=== PATIENT | female | born 1950 | race Caucasian/White ===

== ENCOUNTER 2018-02-25 14:41 | Inpatient (IN) ==
[2018-02-25] MEDS ORDERED: LR 1,000 ML IV ONE (17:00)
[2018-02-25] MEDS ORDERED: ZOFRAN IV PRN (17:01)
[2018-02-25] MEDS ORDERED: SALINE LOCK IV FLUID XX ONE (17:01)
[2018-02-25] MEDS ORDERED: LR 500 ML IV ONE (17:01)
[2018-02-25] MEDS ORDERED: MORPHINE IV PRN ×2 (17:01→20:13)
[2018-02-25 18:06] LABS: BASO# 0.02 X1000 (0.0-0.2); BASO% 0.2 % (0.0-0.8); EOS# 0.01 X1000 (0.0-0.7); EOS% 0.1 % (0.0-10.0); HEMATOCRIT 47.6 % (37.0-47.0); HEMOGLOBIN 16.2 g/dL (12.0-16.0); IMM GRAN# 0.03 X1000 (0.0-0.04); IMM GRAN% 0.2 % (0.0-0.5); LYMPH# 1.18 X1000 (1.2-3.4); LYMPH% 9.7 % (20.5-51.1); MCH 29.8 PG (27-31); MCV 87.5 FL (81-99); MONO# 0.56 X1000 (0.11-0.59); MONO% 4.6 % (1.7-9.3); MPV 9.9 FL (7.4-10.4); NEUT# 10.32 X1000 (1.4-6.5); NEUT% 85.2 % (42.2-75.2); PLT 216 X1000 (130-400); RBC 5.44 XMIL (4.2-5.4); RDW 12.7 % (11.5-14.5); WBC 12.12 X1000 (4.8-10.8)
[2018-02-25 18:52] LABS: LYMPHS 8 % (21-51); MONO 4 % (1-9); SEGS 87 % (42-75)
[2018-02-25 18:57] LABS: AGAP 17; ALB/GLOB RATIO 1.2; ALKALINE PHOSPHATASE 128 U/L (32-104); AMYLASE 1113 U/L (20-200); BUN 15 mg/dL (8-22); CALCIUM 9.3 mg/dL (8.8-10.2); CHLORIDE 96 mmol/L (98-107); COSMO 283; CREATININE 0.9 mg/dL (0.5-0.9); ESTIMATED GFR > 60; GLUCOSE 391 mg/dL (70-104); GOT 21 U/L (10-30); GPT 26 U/L (10-36); POTASSIUM 4.8 mmol/L (3.5-5.1); SODIUM 133 mmol/L (136-145); TCO2 20 mmol/L (25-35); TOTAL BILIRUBIN 1.28 mg/dL (0.20-1.00); TOTAL PROTEIN 7.3 g/dL (6.3-8.3)
[2018-02-25] MEDS: LOVENOX SUBQ SCH (19:10)
[2018-02-25 19:23] LABS: LIPASE > 3000 U/L (13-60)
[2018-02-25] MEDS: ZOFRAN IV PRN ×2 (20:30→22:44)
[2018-02-25] MEDS: MORPHINE IV PRN ×2 (20:30→22:41)
[2018-02-25] MEDS: LR 1,000 ML IV SCH (20:35)
--- NOTE | 2018-02-25 21:13 | Diag Imaging Result Doc PS360 ---
EXAM: CT ABD/PELVIS W/IV CONT ONLY - 02/25/2018 HISTORY: abd. pain, vomiting TECHNIQUE: CT abdomen/pelvis with intravenous contrast. No oral contrast administered per request the referring provider. COMPARISON: 01/11/2018 FINDINGS: The visualized lung bases appear clear except for mild dependent atelectasis. The gallbladder surgically absent. There is mild biliary ductal dilatation which may relate to the postcholecystectomy state. There is no calcified common duct stone identified. There is a 2.6 cm fluid density lesion suggestive of cyst in the right lobe of liver, which appears to have enlarged mildly. There are no acute abnormalities of the spleen, adrenal glands, or kidneys identified. The pancreatic duct is mildly dilated. There is peripancreatic infiltration which is most prominent near the pancreatic tail, compatible with acute pancreatitis. There is no pancreatic necrosis identified. There is no pseudocyst identified. There is no discrete pancreatic mass identified. There are nonspecific small retroperitoneal lymph nodes. There are no substantial enlarged lymph nodes identified. There are extensive atherosclerotic calcifications noted in the abdominal aorta and iliac arteries. There is a lumbar spine degenerative changes noted. There is no evidence of bowel obstruction. The appendix is unremarkable. There is no free air, substantial free fluid, or abscess identified. IMPRESSION: Acute pancreatitis. Mild dilatation of pancreatic duct. No evidence of pancreatic necrosis. No pseudocyst. Mild biliary ductal dilatation, which may relate to the postcholecystectomy state. Apparent 2.6 cm hepatic cyst. This exam was performed using automated exposure control, adjustment of mA or kV according to patient size, and/or use of iterative reconstruction technique. Electronically signed by Yousif Clark 02/25/2018 9:11 PM
--- NOTE | 2018-02-25 21:22 | HISTORY AND PHYSICAL ---
ATTENDING PHYSICIAN: Dr. Sesar Pitts. ADMITTING PHYSICIAN: Dr. Sesar Pitts. CHIEF COMPLAINT: Abdominal pain complicated by nausea and vomiting. HISTORY OF PRESENT ILLNESS: Ms Leone is a pleasant 68-year-old female with past medical history consistent with insulin-dependent diabetes, dyslipidemia, history of asthma, history of right knee pain secondary to right lateral meniscus injury, history of chronic pancreatitis, history of hypertension. She was recently admitted to the Internal Medicine service in December 2017 for questionable early pancreatitis. An EGD performed during the admission failed to demonstrate any evidence of acute findings. She presents today with less than 24 hours of worsening abdominal pain complicated by nausea and vomiting, suspicious for acute small bowel obstruction versus acute pancreatitis. She reports no unusual symptoms over the past 48 to 72 hours. She awoke this morning with some nonspecific and early abdominal distress which appears to be progressing over the course of the day. She is admitted to the Internal Medicine service for acute abdominal pain, distention, nausea and vomiting, further diagnostic labs and imaging studies. ALLERGIES: Crestor, Phenergan, TriCor and Hyzaar. MEDICATIONS ON ADMISSION: Including: Injectable insulin, both basal and bolus, levothyroxine 25 mcg once daily, Pantoprazole 40 mg every other day and atorvastatin 20 mg p.o. at bedtime. FAMILY HISTORY: Father secondary to metastatic cancer of the colon to the liver. Mother 2014 with advanced coronary disease and osteoarthritis. She is an only child. SOCIAL STATUS: Patient is with 45-year-old boy, 3 grandchildren. She has been since 1970. She denies any tobacco. She admits to rare alcohol use less than 3 times a year. PAST SURGICAL HISTORY: Cholecystectomy in 2009, right knee surgery in 2014, lymph node biopsy in 1986, skin biopsy in 2007, right foot surgery in 2014. Patient's last annual wellness visit in August 2017. Patient's last admission to the Internal Medicine service in December 2017. At that time she underwent CAT scan of sinus CT scan and repeat CAT scan. Initial episode of pancreatitis dates back to 2007 with recurrent admission in 2016 and questionable diagnosis in December 2017. REVIEW OF SYSTEMS: A 12 point review of systems is unremarkable except that noted within the HPI. She does report [employer] chicken and red beans with rice yesterday afternoon, no issues. Then a grilled hamburger at [employer] with some mild exacerbation of reflux symptoms. She states she had no problems following the meal last night and had an uneventful night, but this morning as mentioned above awoke with 6-7/10 pain with no nausea which is progressed to 10+ out of 10, now with nausea and dry heaves. EXAMINATION: Blood pressure 140/80, pulse of 85, temperature at 98.5, saturating 97% on room air. The patient is 200 pounds with a BMI at 32.27.Generally: Well-nourished, well developed female in a mild to moderate amount of distress secondary to dry heaves and abdominal discomfort. HEENT: Neck is soft and supple without lymphadenopathy or bruits. Cardiovascular: Unremarkable. Lungs: Clear. Abdomen: Diffusely tender with mild guarding. Perineal rebound is not assessed secondary to tenderness and nausea. Extremities: Benign, without clubbing, cyanosis or edema. Neurologic: Cranial nerves 2-12 are grossly intact. Patient is alert and oriented x 3 without any cognitive deficiencies. ADDITIONAL LABORATORY: Including chemistry, KUB are obtained on admission. Results are pending at the time of dictation. ASSESSMENT AND PLAN: Differential diagnosis including viral gastroenteritis versus small-bowel obstruction complicated by nausea and vomiting, initiation of nasogastric suction may be indicated pending further diagnostic workup and imaging. Antiemetic IV as well as anti pain IV will be provided. Considering her history of chronic/recurrent pancreatitis, medications today have been stopped or held secondary to recent exacerbation in the fall. Consider other causes including adhesive disease as potential exacerbators of abdominal pain. The patient had an EGD during her last admission on the 15 of January which failed to demonstrate any evidence of abnormalities within the duodenum or the stomach. We will continue to follow clinically in this regard. Patient and understand the course of treatment and plan. No further issues at this time. No further issues at this time. TIME SPENT: Total time spent in evaluation of patient, documentation, phone followup and admission orders and dictation of history and physical greater than 90 minutes. cc: Sesar Pitts DO
[2018-02-25 22:22] LABS: INR 1.06; PROTIME 14.6 Seconds (11.0-16.0)
[2018-02-25 22:30] LABS: CHOLESTEROL 153 mg/dL (0-200); HDL 50 mg/dL (45-65); LDL 75 mg/dL; TRIGLYCERIDES 138 mg/dL (35-135); VLDL 28 mg/dL
[2018-02-26] MEDS: LR 1,000 ML IV SCH ×5 (02:59→23:04)
[2018-02-26] MEDS: MORPHINE IV PRN ×6 (03:06→23:00)
[2018-02-26] MEDS: ZOFRAN IV PRN ×6 (03:06→23:00)
--- NOTE | 2018-02-26 07:22 | Diag Imaging Result Doc PS360 ---
EXAM: KUB ABDOMEN 02/25/2018 HISTORY: acute nausea/vomitting and ABD pain TECHNIQUE: KUB COMMENT: There is stool in the ascending colon. There are surgical clips in the right upper quadrant. There is some gas in the stomach which is not distended. There is no evidence of small bowel dilatation. There is no evidence organomegaly or mass. There is contrast excretion in both kidneys and contrast is present in the urinary bladder. Presumably this is from the CT scan performed at 2040. IMPRESSION: Mild constipation. Otherwise nonspecific abdomen. Electronically signed by Juanito Causey 02/26/2018 7:20 AM
[2018-02-26] MEDS: HUMALOG SUBQ SCH ×3 (11:44→20:24)
[2018-02-26] MEDS: LOVENOX SUBQ SCH (18:23)
--- NOTE | 2018-02-26 19:38 | PROGRESS NOTE ---
DATE: 02/26/2018 ADMITTING DIAGNOSIS: Pancreatitis. This will be hospital day #2. INDICATION FOR ONGOING HOSPITALIZATION: Persistent epigastric and left upper quadrant pain with elevated amylase and lipase, amylase at 1113 and lipase greater than 3000. She has persistent pain. Overnight her pain was improved with q.2 morphine and IV fluids. Laboratory obtained on admission but not contained in the H and P, elevated white blood cell count at 12.12, elevated hemoglobin and hematocrit at 16.2 and 47.6 with platelets at 216,000. Abnormal urine with urine culture pending at the time of this dictation. PT/INR noted to be normal, sodium 133, potassium 4.8, chloride 96, bicarb at 20, BUN and creatinine at 15 and 0.9, glucose at 391, calcium at 9.3, total bilirubin at 1.28, AST and ALT are unremarkable, admission triglycerides at 138, total cholesterol at 153, LDL at 75, HDL at 50, again amylase and lipase at 1113 and greater than 3000 respectively, plasma lactate at 1.9. Urine culture is pending at the time of dictation. Preliminary evaluation is not readily available for review. I's and O's since admission 2000 in and 500 out for +1700 cumulative over the past 24 hours +1.2 5 L. Vitals: Blood pressure 143/65, temperature at 98.4 degrees with T-max at 99.0, pulse rate at 70, saturating 95% on room air. EXAM: HEENT: Is unremarkable. Cardiovascular: Regular rate and rhythm without murmurs, gallops, or rubs. Lungs: Clear. Abdomen: Remains diffusely tender, localization to the left upper quadrant and epigastric region and left lower quadrant. Mild guarding is noted. Patient reports pain is no more than 50% improved. Extremities: Are benign without clubbing, cyanosis or edema. Neurologic: Cranial nerves 2-12 are grossly intact. Patient is alert and oriented x3 without any cognitive deficiencies. Additional laboratory pending for Sunday the 27 of February ES with reflexive ES panel, CMP, total iron, a magnesium, a phosphorus and ongoing surveillance of outstanding urine culture. GI has met with the patient for consultative opinion. Formal evaluation is not readily available for review. IMPRESSION: 68-year-old with acute pancreatitis patient having recently been admitted on 01/09/2018 for possible pancreatitis treated and discharged. Patient presents with more acute, more precipitous and more clinical objective evidence of same with inflammation of the pancreatic tail and I elevated amylase and lipase. Differential diagnosis for causes including medications which have historically been minimized hypertriglyceridemia which is not currently a factor, alcohol which is not currently a factor, certainly viral and/or infectious etiologies and/or evidence of intra pancreatic obstruction, we will deferred to GI with regards to further diagnostic workup. I do think that a ERCP would be of benefit to rule out the presence of intrapancreatic obstruction, perhaps even indication for sphincter of Oddi stenting. Based on elevated iron studies, a elevated hematocrit total iron is being requested. Patient has no history of iron metabolism disorder but certainly hemochromatosis should be considered in the differential diagnosis although low probability. Abnormal urine warrants further followup once urine culture and sensitivity have been identified. We will be advancing the diet as clinically indicated. No indication for parenteral nutritional support at this time although transitioning to alternate nutrient source such as Clinimix may be of benefit, no surgical indication, patient remains clinically stable without further decompensation, will continue to follow clinically in this regard. Total time spent on the floor and at the bedside approximately 40 minutes. cc: Sesar Pitts DO
--- NOTE | 2018-02-27 02:09 | CONSULTATION ---
DATE OF CONSULTATION: 02/26/2018 REASON FOR CONSULTATION: Abdominal pain, acute pancreatitis, history of chronic pancreatitis. HISTORY OF PRESENT ILLNESS: This is a 68-year-old white female who is known to our practice. She has a history of chronic pancreatitis with most recent episodes in December of 2017. She was in the hospital, once she was discharged she had an EGD as an outpatient on 2017. Findings showed gastritis and small duodenal nodules. Biopsy showed chronic inflammation in the small intestine/duodenum with gastric metaplasia and chronic inactive gastritis in the stomach, H. pylori was negative. The patient states she did well after the EGD until yesterday. She has not been on any new medications. She has been taking her Prilosec as prescribed. Symptom onset early Sunday morning. Sunday she had eaten out for lunch at [employer], she had chicken with beans and rice, for supper she ate at a local restaurant and had a hamburger. Sunday morning she states she did not feel well, she had some abdominal pain with nausea and chills , and symptoms worsened. She called Dr. Pitts who admitted her to the hospital for further evaluation. Currently the patient states her pain level is a 6/10, she has received pain medication and medication for nausea. She states she had normal bowel movements yesterday. She had reported chills. She had episodes of nausea with dry heaves. She did have some greenish color emesis. No reported hematemesis or blood in the stool. PAST MEDICAL HISTORY: Diabetes, dyslipidemia, history of asthma, history of right meniscus injury, history of chronic pancreatitis, hypertension. PAST SURGICAL HISTORY: Cholecystectomy, right knee surgery, lymph node biopsy, skin biopsy, right foot surgery. ALLERGIES: To TriCor, Hyzaar, Phenergan, and Crestor. HOME MEDICATIONS: 1. NovoLog insulin subcutaneous as directed. 2. Tresiba insulin 30 units every night subcutaneous. 3. Levothyroxine 25 mcg daily. 4. Protonix 40 mg daily. SOCIAL HISTORY: She is . She has 1 child. She denies tobacco or recent alcohol use. REVIEW OF SYSTEMS: Per history of present illness. PHYSICAL EXAMINATION: Vital Signs: Temperature 98.4 degrees, pulse 70, blood pressure 143/65. General: The patient is awake and alert. She complains of a pain level of 6/ 10. She has had some episodes of dry heaves. She has received pain medication. She is in no acute distress. HEENT: Normocephalic and atraumatic. Pupils are equal, round, and reactive to light. Sclerae are anicteric. Cardiovascular: Regular rate and rhythm. Respiratory: Lung sounds clear bilaterally. Abdomen: With general tenderness. Positive bowel sounds. Extremities: No lower extremity edema noted. Neurologically: Cranial nerves II-XII grossly intact. The patient is awake, alert, and oriented to person, place, and time. DIAGNOSTIC RESULTS: Laboratory: Hematology: WBC 12.12, hemoglobin 16.2, hematocrit 47.6, MCV 87.5, platelets 216,000. Chemistry: Sodium 133, potassium 4.8, chloride 96, CO2 of 20, BUN 15, creatinine 0.9, glucose 391, total bilirubin 1.28, AST 21, ALT 26, alkaline phosphatase 128, triglycerides 138, cholesterol 153, amylase on 02/25/2018 1113, lipase greater than 3000. IMAGING STUDIES: Abdominal pelvis CT scan showed acute pancreatitis, mild dilation of the pancreatic duct with no evidence of pancreatic necrosis or pseudocyst. Findings also showed mild biliary ductal dilation possibly related to post cholecystectomy state, 2.6-cm hepatic cyst. ASSESSMENT AND PLAN: 1. Acute pancreatitis. 2. Chronic pancreatitis with no definite diagnosis. The patient has had workup in the past. She has had MRCP in the past. 3. Abdominal pain. Continue current management with pain medication. Continue to hold the patient NPO except for ice chips, p.r.n. medication for pain and nausea, symptomatic treatment. The patient has had workup in the past for chronic pancreatitis. Due to her recurrence would recommend endoscopic ultrasound for further evaluation, that will have to be scheduled at an outside facility as an outpatient. We will continue to follow and further plans will be made according to her progress. I have discussed this case with Dr. Harry. Thank you for this consultation. Dictated by RITA Guardado for Reyes Harry MD cc: RITA Valencia MD Jeffrey A. Johnson, DO [facility]
[2018-02-27] MEDS: LR 1,000 ML IV SCH (03:42)
[2018-02-27] MEDS: ZOFRAN IV PRN ×6 (03:42→22:06)
[2018-02-27] MEDS: MORPHINE IV PRN ×6 (03:42→22:06)
[2018-02-27] MEDS ORDERED: G.I. COCKTAIL PO ONE (06:48)
[2018-02-27] MEDS: HUMALOG SUBQ SCH ×4 (06:59→21:49)
[2018-02-27 07:10] LABS: AMYLASE 213 U/L (20-200)
[2018-02-27] MEDS: CLINIMIX E 4.25%-5% SOLUTION 1,000 ML IV SCH ×3 (07:11→20:58)
[2018-02-27 07:13] LABS: AGAP 11; ALB/GLOB RATIO 1.3; ALBUMIN 3.6 g/dL (3.5-5.0); ALKALINE PHOSPHATASE 100 U/L (32-104); BUN 8 mg/dL (8-22); CALCIUM 8.2 mg/dL (8.8-10.2); CHLORIDE 97 mmol/L (98-107); COSMO 273; CREATININE 0.6 mg/dL (0.5-0.9); ESTIMATED GFR > 60; GLUCOSE 213 mg/dL (70-104); GOT 19 U/L (10-30); GPT 21 U/L (10-36); MAGNESIUM 1.5 mg/dL (1.5-2.7); PHOSPHORUS 2.7 mg/dL (2.7-4.5); POTASSIUM 3.9 mmol/L (3.5-5.1); SODIUM 134 mmol/L (136-145); TCO2 26 mmol/L (25-35); TOTAL BILIRUBIN 2.37 mg/dL (0.20-1.00); TOTAL IRON 24 ug/dL (49-151); TOTAL PROTEIN 6.4 g/dL (6.3-8.3)
[2018-02-27 07:28] LABS: LIPASE 857 U/L (13-60)
[2018-02-27] MEDS: CARAFATE LIQUID PO SCH ×3 (09:04→20:20)
--- NOTE | 2018-02-27 14:27 | PROGRESS NOTE ---
DATE: 02/27/2018 SUBJECTIVE: Patient is still having some nausea. She has reported some dry heaves after trying liquids. She reports a pain level of 6/10. She has received pain medication. OBJECTIVE: Vital Signs: Temperature 98.0 degrees, pulse 79, respirations 18, blood pressure 158/74. General: Patient is awake, alert, no acute distress. Respiratory: Lung sounds essentially clear bilaterally. Abdomen: Soft, but tender with palpation. LABORATORY: Hematology from 02/25/2018: WBC 12.12, hemoglobin 16.2, hematocrit 47.6, MCV 87.5, platelets 216,000. Chemistry: Sodium 134, potassium 3.9, chloride 97, CO2 26, BUN 8, creatinine 0.6, glucose 213. Iron 24. Total bilirubin 2.37, AST 19, ALT 21, alkaline phosphatase 100, amylase 213, lipase 857. CT scan of the abdomen and pelvis showed acute pancreatitis with mild dilation of the pancreatic duct. No evidence of pancreatic necrosis and no pseudocyst noted. There was mild biliary duct dilation which may be related to post cholecystectomy state. A 2.6 cm hepatic cyst also noted. ASSESSMENT AND PLAN: 1. Acute pancreatitis. Amylase and lipase have improved some today. 2. Chronic pancreatitis. Patient has had workup in the past. 3. Abdominal pain, nausea. Continue symptomatic treatment and supportive care. Dr. Harry has recommended an endoscopic ultrasound for further evaluation. We will start the referral process to [facility]. Further plans will be made according to her progress during her hospitalization. I have discussed this case with Dr. Harry. Dictated by RITA Guardado for Reyes Harry MD cc: RITA Valencia MD Jeffrey A. Johnson, DO
[2018-02-27] MEDS ORDERED: MAGNESIUM SULFATE 2 GM/S.W.I. 2 GM/50 ML IVPB IV ONE (18:37)
[2018-02-27] MEDS ORDERED: DOXYCYCLINE 100 MG in NS 250 ML IV SCH (18:45)
[2018-02-27] MEDS: LOVENOX SUBQ SCH (18:47)
[2018-02-27] MEDS: ROCEPHIN 1 GM in NS 50 ML IV SCH (20:20)
[2018-02-27] MEDS: PEPCID IV SCH (21:49)
[2018-02-27] MEDS: SODIUM CHLORIDE 0.9% INJ SCH (21:49)
[2018-02-28] MEDS: MORPHINE IV PRN ×6 (02:17→21:48)
[2018-02-28] MEDS: CARAFATE LIQUID PO SCH ×5 (02:17→21:01)
[2018-02-28] MEDS: ZOFRAN IV PRN ×6 (02:17→21:48)
[2018-02-28] MEDS: SODIUM CHLORIDE 0.9% INJ SCH (05:29)
[2018-02-28] MEDS: PEPCID IV SCH ×3 (05:29→18:25)
[2018-02-28] MEDS: CLINIMIX E 4.25%-5% SOLUTION 1,000 ML IV SCH ×4 (05:29→20:59)
--- NOTE | 2018-02-28 05:37 | PROGRESS NOTE ---
DATE: 02/27/2018 INDICATION FOR PROLONGED HOSPITALIZATION: Persistence of abdominal pain, although intervally improving labs. SUBJECTIVE: Patient is inquiring about advancing diet to something more solid. This morning, she was offered a GI cocktail for dyspepsia and Carafate with meals. This was not well tolerated secondary to nausea and vomiting. She has not had any additional GI cocktail since this morning. She remains hemodynamically stable. OBJECTIVE: Vital Signs: Blood pressure 158/69, respirations at 16, pulse at 78, saturating 98% on room air. T-max at 98.4 degrees. Is and Os: 2400 in and 450 out for +1950, 480 in and 1300 out for -820. She is approximately 2.83 L up for her hospitalization. Laboratory: For this morning, CMP with persistence of hyponatremia. Sodium 134, potassium 3.9, chloride at 97, BUN and creatinine at 8 and 0.6, glucose ranging between 213 and 391, calcium has fallen from 9.3 to 8.2. Bilirubin has risen from 1.2 to 2.3. Alkaline phosphatase is normal. Liver enzymes are normal. There has been some interval improvement in amylase and lipase, amylase falling from 1113 to 213 and lipase greater than 3000 now at 857. Urinalysis is consistent with 20,000 to 30,000 gram negative rods. Physical Examination: HEENT: Unremarkable. Cardiovascular: Regular rate and rhythm without murmurs, gallops, or rubs. Lungs: Clear. Abdomen: Remains soft in the epigastric and left upper quadrant as well as the left lower quadrant with mild guarding. Extremities: Benign, without clubbing, cyanosis, or edema. Neurological: Cranial nerves 2-12 are grossly intact. Patient is alert and orient x3 without any cognitive deficiencies. IMPRESSION AND PLAN: 1. A 68-year-old with acute on chronic pancreatitis. Patient admitted with abnormal CT scan as well as elevated biochemical markers. Although these labs appear to be trending downward, she continues to remain tender. She is requesting advancement of her diet, thinking that something on her stomach may help settle her stomach. A small amount of crackers and peanut butter and pudding will be offered. I suspect that this might make her sick again, and a more slow and deliberate introduction of fluids graduating from clears to fulls to soft and then to a regular diet will be appropriate. 2. With regards to the abnormal urine, we will be starting her on Rocephin. This should add any additional coverage from a pancreatic standpoint, although it is not felt that this is infective or necrotic pancreatitis in nature. She has no other focal source. 3. With regards to dyspepsia, she had an esophagogastroduodenoscopy the last time that she was in the hospital, without any significant findings. She is currently on nothing for acid suppression. We will start her on some Pepcid 20 mg intravenous twice daily and follow clinically. 4. She continues on deep venous thrombosis prophylaxis and we have transitioned her from lactated Ringer's to Clinimix as supplemental nutrition support. No new and/or additional recommendations at this time. Patient understands the course of treatment and plan. Note is dictated on the evening of rounds. cc: Sesar Pitts DO
[2018-02-28] MEDS: HUMALOG SUBQ SCH ×3 (06:23→17:15)
[2018-02-28 07:31] LABS: AGAP 16; ALB/GLOB RATIO 1.2; ALKALINE PHOSPHATASE 117 U/L (32-104); AMYLASE 49 U/L (20-200); BUN 18 mg/dL (8-22); CALCIUM 8.9 mg/dL (8.8-10.2); CHLORIDE 95 mmol/L (98-107); COSMO 286; CREATININE 0.8 mg/dL (0.5-0.9); ESTIMATED GFR > 60; GLUCOSE 309 mg/dL (70-104); GOT 16 U/L (10-30); GPT 20 U/L (10-36); MAGNESIUM 2.2 mg/dL (1.5-2.7); POTASSIUM 4.2 mmol/L (3.5-5.1); SODIUM 136 mmol/L (136-145); TCO2 25 mmol/L (25-35); TOTAL BILIRUBIN 1.05 mg/dL (0.20-1.00); TOTAL PROTEIN 7.4 g/dL (6.3-8.3)
--- NOTE | 2018-02-28 07:53 | PROGRESS NOTE ---
DATE: 02/28/2018 INDICATION FOR PROLONGED HOSPITALIZATION: Ongoing medical management for acute pancreatitis. SUBJECTIVE: Overnight, no complaints. The patient is stating that she has slept very well. She did try some crackers last night without exacerbation of abdominal pain, and a single bite of pudding without exacerbation of abdominal pain. She does still require frequent doses of morphine and Zofran for epigastric discomfort. She was supplemented with magnesium sulfate for low-normal magnesium, and repeat labs are pending for this morning. OBJECTIVE: Vital Signs: Blood pressure 156/67, pulse at 84, temperature at 98.2 degrees, T-max at 98.2 degrees. Intake and output 480 in and 3450 out for negative 2.9 7 L. Cumulatively for hospitalization, she is at +680 mL. She was also started on IV Rocephin for gram-negative danny. Culture is pending at this time. HEENT: Unremarkable. Cardiovascular: Regular rate and rhythm without murmurs, gallops, or rubs. Lungs: Clear. Abdomen: Continues to be tender with a moderate amount of improvement. Tenderness continues to be localized to the epigastric left upper quadrant and left lower quadrant. There is minimal guarding and no rebound. Extremities: Benign without clubbing, cyanosis, or edema. Neurological: Cranial nerves II through XII are grossly intact. LABORATORY DATA: Laboratory for this morning is pending. Lipase trend is greater than 3000 on admission, 875 yesterday morning, and 294 last night. Additional CMP and amylase are pending at this time. IMPRESSION: Acute pancreatitis. Etiology is queried. Patient with a history of dyslipidemia, but lipids well controlled. The patient does not have a gallbladder. Gastroenterology has recommended an endoscopic retrograde cholangiopancreatography with intraductal ultrasound. This will be arranged through the [facility] Gastroenterology Service. Plan is to advanced diet today as tolerated, and begin transition from intravenous pain management to oral pain management, and follow clinically in this regard. Final urine culture is pending at the time of dictation. There are no new and/or additional recommendations at this time. Will be doing some adjusting in the insulin based on glucoses ranging between 213 and 391. Hemoglobin A1c obtained in December at 10.0, with average glucose estimated at 240. We will be adding back basal insulin. No new and/or additional recommendations at this time. cc: Sesar Pitts DO
[2018-02-28] MEDS ORDERED: INSULIN PEN NEEDLES ONE (09:13)
[2018-02-28] MEDS: LOVENOX SUBQ SCH (18:25)
[2018-02-28] MEDS: ROCEPHIN 1 GM in NS 50 ML IV SCH (20:59)
[2018-03-01] MEDS: MORPHINE IV PRN ×2 (01:03→06:11)
[2018-03-01] MEDS: ZOFRAN IV PRN ×3 (01:03→16:40)
[2018-03-01] MEDS: HUMALOG SUBQ SCH ×5 (01:18→15:35)
[2018-03-01] MEDS: CLINIMIX E 4.25%-5% SOLUTION 1,000 ML IV SCH ×5 (01:19→18:10)
[2018-03-01] MEDS: LEVEMIR SUBQ SCH ×2 (01:31→01:32)
[2018-03-01] MEDS: CARAFATE LIQUID PO SCH ×3 (02:57→15:10)
--- NOTE | 2018-03-01 04:31 | PROGRESS NOTE ---
DATE: 02/28/2018 SUBJECTIVE: Ms. Leone was sitting up in the bed. In fact, she was getting up to get her bed changed. She tells me that she tolerated her breakfast to some degree. However, when she had eaten some sausage, she felt slightly wheezy. She has not however vomited. Overall, she feels much better since she came in. She denies any change in her bowel habits, has not had any blood or mucus in her stool. OBJECTIVE: Vitals: Temperature: The patient is afebrile, 98.2. Pulse is 70 per minute, breathing 22. Blood pressure 159/66. Abdomen: Obese, soft. Mildly tender in the epigastric area. No rebound tenderness or guarding noted. Bowel sounds are audible. LABORATORIES: Reviewed, which showed amylase has come down to 49 today. Transaminases are normal. But bilirubin was 1.05, down from 2.37 yesterday. IMPRESSION: Acute pancreatitis. So far, we do not know the etiology. Imaging studies have shown slightly dilated pancreatic duct. I agree with advancing the diet, but I would try to get her on a low fat diet. I have advised the nurses to make sure that she gets a low fat diet. Once stabilized, she can be discharged to be followed up at the office. She will need an endoscopic ultrasound to further evaluate the pancreas. Depending on that, further plans will be made. Arrangements will be made to get her scheduled for an endoscopic ultrasound as an outpatient, most likely at [facility]. I have explained the lab findings and plan to the patient. She understood. All the pertinent questions answered. cc: MD Sesar Denson, DO
[2018-03-01] MEDS: PEPCID IV SCH ×2 (06:11→18:09)
[2018-03-01] MEDS: SODIUM CHLORIDE 0.9% INJ SCH (06:11)
[2018-03-01] MEDS ORDERED: MISC. PHARMACY COMMUNICATION SCH (07:30)
--- NOTE | 2018-03-01 10:14 | Diag Imaging Result Doc PS360 ---
MRI ABDOMEN W/WO CONTRAST - 03/01/2018 INDICATION: special attention to pancreas TECHNIQUE: MRI with MRCP. Without and with intravenous contrast. COMPARISON: CT from 02/25/2018 FINDINGS: The common bile duct measures 8 mm in caliber. The contour is uniform and there are no filling defect. There is normal tapering in the pancreatic head. The main pancreatic duct measures 6 mm. Again contour is fairly smooth and there are no filling defects. There is a benign cyst in the liver dome measuring 2.1 cm. The gallbladder is not demonstrated. The liver, pancreas, spleen, adrenals, and kidneys are normal in signal. There is some peripancreatic edema at the pancreatic tail similar to prior. No drainable fluid collections here. There is some ill-defined contrast enhancement here as well. IMPRESSION: 1. Peripancreatic edema with some enhancement at the pancreatic tail. Consistent with ongoing pancreatitis. 2. Mildly prominent common bile duct and main pancreatic duct diffusely. No strictures or filling defects. The reason is unclear. This could represent stenosis/back pressure at the papilla indicating biliary dyskinesia. Electronically signed by Alex Carroll 03/01/2018 10:12 AM
[2018-03-01] MEDS: NORCO-10 PO PRN ×2 (11:26→16:39)
--- NOTE | 2018-03-01 12:17 | PROGRESS NOTE ---
DATE: 03/01/2018 SUBJECTIVE: Patient states she feels a little better today. She has tolerated a small amount of food today. She did have a MRCP this morning that showed peripancreatic edema with some enhancement at the peripancreatic tail consistent with ongoing pancreatitis and mildly prominent common bile duct and main pancreatic duct with no strictures or filling defects. The reason is unclear, possibly representing stenosis/back pressure at the papilla indicating biliary dyskinesia. Patient is still having to receive pain medication, although not as often. OBJECTIVE: Vital Signs: Temperature 98.0 degrees pulse 70, blood pressure 158/71. General: Patient is awake, alert, in no acute distress. Abdomen: Soft, with mild tenderness. Tenderness has improved. LABORATORY: Hematology from 02/25/2018: WBC 12.12, hemoglobin 16.2, hematocrit 47.6, MCV 87.5. Chemistry 02/28/2018: Sodium 136, potassium 4.2, chloride 95, CO2 25. BUN 18, creatinine 0..8, glucose. 309 total bilirubin 1.005, AST 16, ALT 20, alkaline phosphatase 117. ES screen was negative. ASSESSMENT AND PLAN: 1. Acute pancreatitis. 2. Chronic pancreatitis with unknown etiology. Magnetic resonance cholangiopancreatography was done today; results reviewed .continue symptomatic treatment and supportive care for pain and nausea. Hopefully she will be able to be discharged over the weekend. Dr. Harry has recommended she have further evaluation and referral to [facility] for an endoscopic ultrasound for further evaluation. That will be referred and scheduled as an outpatient. Further plans to be made as needed. I have discussed this case with Dr. Harry. We will also order a CEA and CA 19-9 due to her recurring pancreatitis. Dictated by RITA Guardado for Reyes Harry MD cc: RITA Valencia MD Jeffrey A. Johnson,
[2018-03-01 14:00] VITALS: BP 155/71
[2018-03-01] MEDS: LOVENOX SUBQ SCH (18:09)
--- NOTE | 2018-03-03 04:47 | DISCHARGE SUMMARY ---
ADMISSION DATE: 02/25/2018 DISCHARGE DATE: 03/01/2018 DIAGNOSIS DIAGNOSES: 1. Acute pancreatitis diagnosed via clinical presentation and known history, supported by abnormal-appearing MRI with inflammatory changes involving the tail of the pancreas and abnormal laboratory data with admission amylase at 1113, defervescing to 49 at the time of discharge, and admission lipase at greater than 3000, falling to 294 at the time of discharge. Additional markers of interest: AFP tumor marker noted to be negative and CA-19-9 marker noted to be negative. Admission triglycerides at 138, historically as high as 244. This would be the lowest triglycerides on admission in more than 2-1/2 years. AST and ALT are normal on admission. Iron level slightly low at 24. The patient was noted to have normal calcium on admission, falling to a lucy of 8.2 but resolving spontaneously to 8.9. Magnesium was 1.6 on admission, increasing to 2.2. No evidence of coagulopathy on admission. GI was consulted, recommending outpatient evaluation with intraductal ultrasound based on failure to improve with conservative management, bowel rest, clear liquids, and pain management with resuscitation. An MRI was ordered, demonstrating peripancreatic edema with some enhancement in the pancreatic tail consistent with ongoing pancreatitis. Mildly prominent common bile duct. No strictures or filling defect, concern for stenosis, or back pressure at the papilla indicating biliary dyskinesia is considered in the differential diagnosis. 2. Dyspepsia, status post esophagogastroduodenoscopy at last admission with no significant findings. 3. Abnormal urine. Urinalysis dated 02/25/2018 returning as positive for Escherichia coli. She was treated with Rocephin. HOSPITAL COURSE: The patient's hospital course continued to improve. On the evening of discharge, she was noted to have good pain control with oral narcotics and tolerating solid food without abdominal distress. MEDICATIONS AT THE TIME OF DISCHARGE: [place] 10/325 one p.o. every 4 hours p.r.n., and Zofran oral disintegrating tablets 4 mg every 6 hours p.r.n. Ongoing medications not changed and continued at the time of discharge including: NovoLog FlexPen at a ratio of 2:1 maximum of 22 units per meal based on 45 g meal. Tresiba U-200, 30 units at bedtime. Levothyroxine 25 mcg once daily. Pantoprazole 40 mg once daily. DISPOSITION: The patient is released with interval followup in the Internal Medicine [facility] in the next 7 to 10 days. GI Service will also be arranging for consultative opinion for the GI Service at [facility]. No new and/or additional recommendations at this time. Note is dictated on the day following discharge. cc: Sesar Pitts DO
== END 2018-03-01 18:46 | disposition home or self-care (01) | DRG 439 ==
LOC: DIRADM 14:41 → 3N 17:18
PROVIDERS: ADMIT Internal Medicine; ATTEND Internal Medicine
CPT/HCPCS: 74000; 74018; 74177; 74183; 80053; 80061; 82150; 82948; 83540; 83605; 83690; 83735; 84100; 85025; 85610; 86038; 86039; 87077; 87088; 87186; A9270; A9579; J0696; J1650; J1815; J2270; J2405; J3475; J7120; Q9967; S0028; XXXXX